=== PATIENT | female | born 1990 | race Hispanic/Latino ===

== ENCOUNTER 2018-03-26 15:50 | Observation (INO) | payer BC, OTHER ==
[2018-03-26] MEDS ORDERED: NA CHLORIDE 0.9% 2,000 ML ONE (16:00)
[2018-03-26] MEDS ORDERED: LORazepam 2 MG/ML VIAL ONE ×2 (16:04→17:56)
[2018-03-26 16:17] LABS: Absolute Lymphocytes (CBC) 3.6 K/uL (0.7-4.9); Absolute Monocytes 0.6 K/uL (0.1-1.3); Absolute Neutrophil 11.1 K/uL (1.8-8.0); Basophils % 0.7 % (0-1.3); Eosinophils % 0.1 % (0-4.4); Hematocrit 39.6 % (36.0-45.0); Lymphocytes % 23.4 % (15.3-44.8); MCH 30.5 pg (27.0-35.0); MPV 9.1 fL (7.6-11.3); Monocytes % 4.2 % (3.3-12.3)
[2018-03-26 16:25] LABS: Protime INR 1.14
[2018-03-26] MEDS ORDERED: LABETALOL HCL 100 MG/20 ML ONE (16:46)
[2018-03-26 16:52] LABS: ALT/SGPT 81 U/L (12-78); AST/SGOT 53 U/L (15-37); Albumin 3.8 g/dL (3.4-5.0); Alkaline Phosphatase 62 U/L (45-117); BUN Blood Urea Nitrogen 11 mg/dL (7-18); Bicarbonate 16 mmol/L (21-32); Bilirubin Direct 0.1 mg/dL (0-0.2); Bilirubin Total 0.5 mg/dL (0.2-1.0); Glucose Level 153 mg/dL (74-106); Magnesium 1.6 mg/dL (1.8-2.4); NT PRO-BNP 53 pg/mL (<125); Potassium 3.5 mmol/L (3.5-5.1); Protein, Total 8.1 g/dL (6.4-8.2); Sodium Level 142 mmol/L (136-145); Troponin (Emerg Dept Use Only) < 0.02 ng/mL (0.0-0.045)
--- NOTE | 2018-03-26 17:02 | RAD REPORT ---
EXAM DESCRIPTION: RAD - Chest Single View - 03/26/2018 4:21 pm CLINICAL HISTORY: Chest pain, tachycardia COMPARISON: None. TECHNIQUE: AP portable chest image was obtained 1605 hour . FINDINGS: Lung volumes are low. No peripheral mass, consolidation pulmonary edema. Resuscitation pad dles overlie the right chest and upper left abdomen. Heart and vasculature are normal. No measurable pleural effusion and no pneumothorax. No acute bony abnormality seen. No acute aortic findings suspec nimo. IMPRESSION: No acute cardiopulmonary process.
[2018-03-26] MEDS ORDERED: Magnesium Sulfate 2gm IVPB 2 G/50 ML BAG IV ONE (17:15)
[2018-03-26] MEDS ORDERED: NA CHLORIDE 0.9% 1,000 ML ONE ×2 (17:18→18:26)
[2018-03-26 17:23] LABS: Arterial Blood Carboxyhemoglob 0.7 % (0-1.5); Blood Gas Oxyhemoglobin 96.9 % (94-97); Blood O2 Saturation 98.9 % (92-98.5)
--- NOTE | 2018-03-26 18:32 | ER ---
Nurse's Notes [facility] Name: Aminata Garcia Age: 27 yrs Sex: Female : 1990 Arrival Date: 03/26/2018 Time: 15:51 Bed 2 Private MD: Diagnosis: Lactic Acidosis;Dehydration;Tachycardia, unspecified Presentation: 03/26 15:52 Presenting complaint: EMS states: was drinking with friends and today pt heart rate is hj on the 190's, max of 212; BP- 190/180; 160/80; 18 G RAC; pt was given adenosine 6 x 1 at 1520, HR- 78, few minutes later, HR on 190's, adenosine 12 givewn at 1525, HR went down to 92, then HR went up to 212, adenosine 12 given, 25 cardizem IV given;. Transition of care: patient was not received from another setting of care. Onset of symptoms was March 26, 2018. Risk Assessment: Do you want to hurt yourself or someone else? Patient reports no desire to harm self or others. Initial Sepsis Screen: Does the patient meet any 2 criteria? No. Patient's initial sepsis screen is negative. Does the patient have a suspected source of infection? No. Patient's initial sepsis screen is negative. Care prior to arrival: None. 15:52 Method Of Arrival: EMS: [facility] 15:52 Acuity: ROSE 2 hj Triage Assessment: 15:56 General: Appears in no apparent distress. uncomfortable, obese, Behavior is calm, hj cooperative, appropriate for age. Pain: Denies pain. 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 - Social history:: Smoking status: Patient uses tobacco products, Patient/guardian denies using alcohol, street drugs. - Ebola Screening: : Patient negative for fever greater than or equal to 101.5 degrees Fahrenheit, and additional compatible Ebola Virus Disease symptoms Patient denies exposure to infectious person Patient denies travel to an Ebola-affected area in the 21 days before illness onset. Screenin:56 Abuse screen: Denies threats or abuse. Denies injuries from another. Nutritional hj screening: No deficits noted. Tuberculosis screening: No symptoms or risk factors identified. Fall Risk None identified. Assessment: 15:56 General: Appears in no apparent distress. uncomfortable, Behavior is cooperative, hj appropriate for age, anxious. Pain: Denies pain. Neuro: Level of Consciousness is awake, alert, obeys commands, Oriented to person, place, time, situation, Appropriate for age. Cardiovascular: Capillary refill < 3 seconds Patient's skin is warm and dry. Respiratory: Airway is patent Respiratory effort is labored, Respiratory pattern is tachypnea. GI: No signs and/or symptoms were reported involving the gastrointestinal system. : EENT: No signs and/or symptoms were reported regarding the EENT system. Derm: No signs and/or symptoms reported regarding the dermatologic system. Musculoskeletal: No signs and/or symptoms reported regarding the musculoskeletal system. 16:30 Reassessment: Patient and/or family updated on plan of care and expected duration. Pain hj level reassessed. complaints of muscle aches and cannot open up hands; clinching of hands;. 17:30 Reassessment: Patient and/or family updated on plan of care and expected duration. Pain hj level reassessed. family in room;. 18:02 Reassessment: lactic of 4.3; MD notified;. hj 18:14 Reassessment: Patient and/or family updated on plan of care and expected duration. Pain hj level reassessed. Patient is alert, oriented x 3, equal unlabored respirations, skin warm/dry/pink. Patient states feeling better. Patient states symptoms have improved. 18:48 Reassessment: Patient and/or family updated on plan of care and expected duration. Pain hj level reassessed. Patient is alert, oriented x 3, equal unlabored respirations, skin warm/dry/pink. Patient states feeling better. Patient states symptoms have improved. 19:24 Reassessment: Patient appears in no apparent distress at this time. Patient and/or aa1 family updated on plan of care and expected duration. Pain level reassessed. Patient is alert, oriented x 3, equal unlabored respirations, skin warm/dry/pink. Awaiting bed assignment. 20:10 Reassessment: Patient appears in no apparent distress at this time. Patient is alert, aa1 oriented x 3, equal unlabored respirations, skin warm/dry/pink. Report given to Mela on 2nd floor. Vital Signs: 15:57 BP 144 / 85; Pulse 170; Resp 18; Temp 98.1(TE); Pulse Ox 100% on R/A; Weight 95.25 kg; hj Height 5 ft. 4 in. (162.56 cm); Pain 0/10; 16:32 BP 153 / 95; Pulse 162; Resp 18; Pulse Ox 100% on R/A; hj 17:51 BP 143 / 65; Pulse 130; Resp 18; Pulse Ox 100% on R/A; hj 18:13 BP 138 / 80; Pulse 128; Resp 18; Pulse Ox 99% on R/A; hj 18:48 BP 130 / 83; Pulse 130; Resp 18; Pulse Ox 100% on R/A; hj 19:24 BP 117 / 54; Pulse 135; Resp 16; Pulse Ox 99% on R/A; Pain 0/10; aa1 20:04 BP 118 / 60; Pulse 124; Resp 18; Pulse Ox 100% on R/A; Pain 0/10; aa1 15:57 Body Mass Index 36.05 (95.25 kg, 162.56 cm) hj ED Course: 15:51 Patient arrived in ED. hj 15:55 Triage completed. hj 15:56 Arm band placed on right wrist. hj 15:57 Patient has correct armband on for positive identification. Placed in gown. Bed in low hj position. Call light in reach. Side rails up X2. 15:58 [facility] jr8 15:58 Rashawn Harris MD is Attending Physician. jr8 16:00 Romulo Jara, ROD is Primary Nurse. hj 16:19 XRAY Chest (1 view) In Process Unspecified. EDMS 16:45 Maintain EMS IV. Dressing intact. Good blood return noted. Site clean \T\ dry. Gauge \T\ hj site: 18 G RAC;. 17:28 Osmolality, Serum Sent. hj 17:28 Lactate Sent. hj 17:28 CK Sent. hj 18:11 Jerman Garzon MD is Hospitalizing Provider. jr8 20:05 No provider procedures requiring assistance completed. Patient did not have IV access aa1 during this emergency room visit. Administered Medications: 16:00 Drug: Ativan 1 mg Route: IVP; Site: right antecubital; hj 16:37 Follow up: Response: No adverse reaction hj 16:01 Drug: NS 0.9% 1000 ml Route: IV; Rate: 1000 ml; Site: right antecubital; hb 16:01 Drug: NS 0.9% 1000 ml Route: IV; Rate: 1000 ml; Site: right antecubital; hj 16:19 Drug: Ativan 1 mg Route: IVP; Site: right antecubital; hj 16:37 Follow up: Response: No adverse reaction hj 16:36 Drug: Labetalol 10 mg Route: IVP; Infused Over: 2 mins; Site: right antecubital; hj 16:41 Follow up: Response: No adverse reaction hj 17:06 Drug: Magnesium Sulfate 2 grams Route: IVPB; Infused Over: 2 hrs; Site: right hj antecubital; 18:50 Follow up: IV Status: Completed infusion hj 17:12 Drug: NS 0.9% 1000 ml Route: IV; Rate: 1 bolus; Site: right antecubital; hj 18:50 Follow up: IV Status: Completed infusion hj 17:51 Drug: Ativan 2 mg Route: IVP; Site: right antecubital; hb 18:14 Follow up: Response: No adverse reaction hj 18:17 Drug: NS 0.9% 1000 ml Route: IV; Rate: 150 ml/hr; Site: right antecubital; hj 18:21 Follow up: IV Status: Infusion continued upon admission hj Outcome: 18:13 Decision to Hospitalize by Provider. jr8 20:28 Admitted to Tele accompanied by tech, family with patient, via wheelchair, room 205, aa1 with chart, Report called to Mela 20:28 Condition: stable 20:28 Instructed on the need for admit, Demonstrated understanding of instructions. 20:29 Patient left the ED. aa1 Signatures: Dispatcher [employer] EDMS Fallon Salazar RN RN aa1 Minor Hernandez PA PA jr8 Romulo Jara RN RN Demi Ruiz RN RN hb
--- NOTE | 2018-03-26 18:33 | EDPHYS ---
Physician Documentation [facility] Name: Aminata Garcia Age: 27 yrs Sex: Female : 1990 Arrival Date: 03/26/2018 Time: 15:51 Bed 2 Private MD: ED Physician Rashawn Harris HPI: 03/26 17:58 This 27 yrs old Female presents to ER via EMS with complaints of heart of 190. jr8 17:58 Patient stated that she had a lot to drink last night with family. Stated that this jr8 morning woke up hung over but ok. This afternoon started to have heart palpitations, anxiety, and could not unclench her hands or feet. Denies ever having this before. EMS state that her heart rate was anywhere from the 170s to 200s. Had given 3 rounds of adenosine and 25 mg of Cardizem with only temporary relief. Patient alert and oriented to person, place, time, event currently . Severity of symptoms: At their worst the symptoms were moderate in the emergency department the symptoms are unchanged. The patient has not experienced similar symptoms in the past. The patient has not recently seen a physician. 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 - Social history:: Smoking status: Patient uses tobacco products, Patient/guardian denies using alcohol, street drugs. - Ebola Screening: : Patient negative for fever greater than or equal to 101.5 degrees Fahrenheit, and additional compatible Ebola Virus Disease symptoms Patient denies exposure to infectious person Patient denies travel to an Ebola-affected area in the 21 days before illness onset. ROS: 17:58 Eyes: Negative for injury, pain, redness, and discharge, ENT: Negative for injury, jr8 pain, and discharge, Neck: Negative for injury, pain, and swelling, Respiratory: Negative for shortness of breath, cough, wheezing, and pleuritic chest pain, Abdomen/GI: Negative for abdominal pain, nausea, vomiting, diarrhea, and constipation, Back: Negative for injury and pain, MS/Extremity: Negative for injury and deformity, Skin: Negative for injury, rash, and discoloration, Neuro: Negative for headache, weakness, numbness, tingling, and seizure. 17:58 Cardiovascular: Positive for palpitations. Exam: 17:58 Head/Face: Normocephalic, atraumatic. Eyes: Pupils equal round and reactive to light, jr8 extra-ocular motions intact. Lids and lashes normal. Conjunctiva and sclera are non-icteric and not injected. Cornea within normal limits. Periorbital areas with no swelling, redness, or edema. ENT: Nares patent. No nasal discharge, no septal abnormalities noted. Tympanic membranes are normal and external auditory canals are clear. Oropharynx with no redness, swelling, or masses, exudates, or evidence of obstruction, uvula midline. Mucous membranes moist. Neck: Trachea midline, no thyromegaly or masses palpated, and no cervical lymphadenopathy. Supple, full range of motion without nuchal rigidity, or vertebral point tenderness. No Meningismus. Respiratory: Lungs have equal breath sounds bilaterally, clear to auscultation and percussion. No rales, rhonchi or wheezes noted. Tachypneac but without increased work of breathing, no retractions or nasal flaring. Abdomen/GI: Soft, non-tender, with normal bowel sounds. No distension or tympany. No guarding or rebound. No evidence of tenderness throughout. Back: No spinal tenderness. No costovertebral tenderness. Full range of motion. 17:58 Cardiovascular: Rate: tachycardic, Rhythm: regular, Pulses: Pulses are 2+ in right radial artery and left radial artery. Heart sounds: normal, normal S1and S2, no S3 or S4, no murmur, no rub, no gallop, Edema: is not appreciated, JVD: is not appreciated. Vital Signs: 15:57 BP 144 / 85; Pulse 170; Resp 18; Temp 98.1(TE); Pulse Ox 100% on R/A; Weight 95.25 kg; hj Height 5 ft. 4 in. (162.56 cm); Pain 0/10; 16:32 BP 153 / 95; Pulse 162; Resp 18; Pulse Ox 100% on R/A; hj 17:51 BP 143 / 65; Pulse 130; Resp 18; Pulse Ox 100% on R/A; hj 18:13 BP 138 / 80; Pulse 128; Resp 18; Pulse Ox 99% on R/A; hj 18:48 BP 130 / 83; Pulse 130; Resp 18; Pulse Ox 100% on R/A; hj 19:24 BP 117 / 54; Pulse 135; Resp 16; Pulse Ox 99% on R/A; Pain 0/10; aa1 20:04 BP 118 / 60; Pulse 124; Resp 18; Pulse Ox 100% on R/A; Pain 0/10; aa1 15:57 Body Mass Index 36.05 (95.25 kg, 162.56 cm) MDM: 15:58 Patient medically screened. [facility] 18:10 Data reviewed: vital signs, nurses notes, lab test result(s), EKG. Data interpreted: [facility] Pulse oximetry: on room air is 100 %. Interpretation: normal. Counseling: I had a detailed discussion with the patient and/or guardian regarding: the historical points, exam findings, and any diagnostic results supporting the discharge/admit diagnosis, lab results, the need for further work-up and treatment in the hospital. Response to treatment: the patient's symptoms have markedly improved after treatment. Physician consultation: Jerman Garzon MD was called at 18:11, was contacted at 18:11, regarding admission, to the telemetry unit. consult, patient's condition, and will see patient. 03/26 15:59 Order name: Acetaminophen; Complete Time: 17:04 03/26 15:59 Order name: Basic Metabolic Panel; Complete Time: 17:04 [facility] 03/26 15:59 Order name: CBC with Diff; Complete Time: 16:35 [facility] 03/26 15:59 Order name: ETOH Level; Complete Time: 17:04 [facility] 03/26 15:59 Order name: Hepatic Function; Complete Time: 17:04 [facility] 03/26 15:59 Order name: PT-INR; Complete Time: 16:35 [facility] 03/26 15:59 Order name: Ptt, Activated; Complete Time: 16:35 [facility] 03/26 15:59 Order name: Salicylate; Complete Time: 17:04 03/26 15:59 Order name: Urine Drug Screen [facility] 03/26 15:59 Order name: Magnesium; Complete Time: 17:04 [facility] 03/26 15:59 Order name: NT PRO-BNP; Complete Time: 17:04 [facility] 03/26 15:59 Order name: Troponin (emerg Dept Use Only); Complete Time: 17:04 [facility] 03/26 15:59 Order name: TSH; Complete Time: 17:04 [facility] 03/26 17:06 Order name: ABG [facility] 03/26 15:59 Order name: XRAY Chest (1 view); Complete Time: 17:04 [facility] 03/26 17:12 Order name: CK; Complete Time: 17:58 [facility] 03/26 17:12 Order name: Lactate [facility] 03/26 17:12 Order name: Osmolality, Serum [facility] 03/26 17:55 Order name: Urine Microscopic Only 03/26 17:57 Order name: Urine Dipstick--Ancillary (enter results) 03/26 17:57 Order name: Urine --Ancillary (enter results) 03/26 15:59 Order name: EKG; Complete Time: 16:00 [facility] 03/26 15:59 Order name: EKG - Nurse/Tech; Complete Time: 16:01 [facility] 03/26 15:59 Order name: IV Saline Lock; Complete Time: 16: [facility] 03/26 15:59 Order name: Labs collected and sent; Complete Time: 16:08 [facility] 03/26 15:59 Order name: Cardiac monitoring; Complete Time: 16: [facility] 03/26 15:59 Order name: O2 Per Protocol; Complete Time: 16: [facility] 03/26 15:59 Order name: O2 Sat Monitoring; Complete Time: 16:01 Administered Medications: 16:00 Drug: Ativan 1 mg Route: IVP; Site: right antecubital; hj 16:37 Follow up: Response: No adverse reaction hj 16:01 Drug: NS 0.9% 1000 ml Route: IV; Rate: 1000 ml; Site: right antecubital; hb 16:01 Drug: NS 0.9% 1000 ml Route: IV; Rate: 1000 ml; Site: right antecubital; hj 16:19 Drug: Ativan 1 mg Route: IVP; Site: right antecubital; hj 16:37 Follow up: Response: No adverse reaction hj 16:36 Drug: Labetalol 10 mg Route: IVP; Infused Over: 2 mins; Site: right antecubital; hj 16:41 Follow up: Response: No adverse reaction hj 17:06 Drug: Magnesium Sulfate 2 grams Route: IVPB; Infused Over: 2 hrs; Site: right hj antecubital; 18:50 Follow up: IV Status: Completed infusion hj 17:12 Drug: NS 0.9% 1000 ml Route: IV; Rate: 1 bolus; Site: right antecubital; hj 18:50 Follow up: IV Status: Completed infusion hj 17:51 Drug: Ativan 2 mg Route: IVP; Site: right antecubital; hb 18:14 Follow up: Response: No adverse reaction hj 18:17 Drug: NS 0.9% 1000 ml Route: IV; Rate: 150 ml/hr; Site: right antecubital; hj 18:21 Follow up: IV Status: Infusion continued upon admission hj Disposition: 18:51 Co-signature as Attending Physician, Rashawn Harris MD pt seen and examined VSS hr down denies coingestion, exam nl except for sinus tachycardia, will admit workup tachycardia lactic acidosis. Disposition: 03/26/18 18:13 Hospitalization ordered by Jerman Garzon for Observation. Preliminary diagnosis are Lactic Acidosis, Dehydration, Tachycardia, unspecified. - Bed requested for Telemetry/MedSurg (observation). - Status is Observation. aa1 - Condition is Stable. - Problem is new. - Symptoms have improved. UTI on Admission? No Signatures: Dispatcher [employer] Susan Gilman RN RN Fallon Salazar RN RN aa1 Minor Hernandez PA PA jr8 Romulo Jara RN RN Demi Ruiz RN RN Rashawn Harris MD MD Corrections: (The following items were deleted from the chart) 19:44 18:13 Hospitalization Ordered by Jerman Garzon MD for Observation. Preliminary diagnosis dw is Lactic Acidosis; Dehydration; Tachycardia, unspecified. Bed requested for Telemetry/MedSurg (observation). Status is Observation. Condition is Stable. Problem is new. Symptoms have improved. UTI on Admission? No. jr8 20:29 19:44 03/26/2018 18:13 Hospitalization Ordered by Jerman Garzon MD for Observation. aa1 Preliminary diagnosis is Lactic Acidosis; Dehydration; Tachycardia, unspecified. Bed requested for Telemetry/MedSurg (observation). Status is Observation. Condition is Stable. Problem is new. Symptoms have improved. UTI on Admission? No. dw
[2018-03-26 19:03] LABS: Barbiturates NEGATIVE (NEGATIVE); Benzodiazepines NEGATIVE (NEGATIVE); Cocaine NEGATIVE (NEGATIVE); METHAMPHETAM NEGATIVE (NEGATIVE); Methadone NEGATIVE (NEGATIVE); Opiates NEGATIVE (NEGATIVE); Phencyclidine NEGATIVE (NEGATIVE); THC Cannibis NEGATIVE (NEGATIVE)
[2018-03-26] MEDS ORDERED: ACETAMINOPHEN 500 MG TAB PO PRN (20:32)
[2018-03-26 21:03] VITALS: BMI 36.3
[2018-03-26] MEDS ORDERED: MAGNESIUM SULFATE 1 gm IVPB 1 GM/100 ML BAG IV ONE (21:33)
[2018-03-26] MEDS ORDERED: POTASSIUM CL SA 10 MEQ TAB PO ONE (22:22)
[2018-03-27 06:24] LABS: Absolute Lymphocytes (CBC) 3.8 K/uL (0.7-4.9); Absolute Monocytes 0.7 K/uL (0.1-1.3); Absolute Neutrophil 8.8 K/uL (1.8-8.0); Basophils % 0.5 % (0-1.3); Eosinophils % 0.5 % (0-4.4); Hematocrit 36.5 % (36.0-45.0); Lymphocytes % 28.3 % (15.3-44.8); MCH 31.4 pg (27.0-35.0); MCV 88.4 fL (80-100); MPV 9.2 fL (7.6-11.3); Monocytes % 5.5 % (3.3-12.3); RBC Red Blood Cell Count 4.13 M/uL (3.86-4.86)
[2018-03-27 06:44] LABS: ALT/SGPT 67 U/L (12-78); AST/SGOT 62 U/L (15-37); Albumin 3.3 g/dL (3.4-5.0); Alkaline Phosphatase 58 U/L (45-117); BUN Blood Urea Nitrogen 8 mg/dL (7-18); Bicarbonate 22 mmol/L (21-32); Bilirubin Total 0.6 mg/dL (0.2-1.0); Glucose Level 102 mg/dL (74-106); Magnesium 2.5 mg/dL (1.8-2.4); Potassium 3.7 mmol/L (3.5-5.1); Sodium Level 140 mmol/L (136-145)
--- NOTE | 2018-03-27 07:03 | EKG ---
Test Date: 2018-03-26 Test Time: 17:10:26 Cheese Cooker: MALA MEASUREMENT RESULTS: Intervals: Rate: 132 MN: 112 QRSD: 82 QT: 322 QTc: 477 [place]: P: 63 MN: 112 QRS: 68 T: 41 INTERPRETIVE STATEMENTS: Sinus tachycardia with occasional premature ventricular complexes Otherwise normal ECG No previous ECG available for comparison Electronically Signed On 03-27-18 07:02:25 EXTERNAL GRINDER by Magdi Llanes
--- NOTE | 2018-03-27 07:20 | EKG ---
Test Date: 2018-03-26 Test Time: 15:54:04 Proof Press Operator: ERICK MEASUREMENT RESULTS: Intervals: Rate: 171 AR: 100 QRSD: 76 QT: 292 QTc: 492 [place]: P: 56 AR: 100 QRS: 72 T: 37 INTERPRETIVE STATEMENTS: Sinus tachycardia with short AR Borderline ECG No previous ECG available for comparison Electronically Signed On 03-27-18 07:20:08 PLEATER by Mike Ramirez
--- NOTE | 2018-03-27 08:13 | P.HP ---
Certification for Inpatient Patient admitted to: Observation With expected LOS: <2 Midnights Patient will require the following post-hospital care: None Practitioner: I am a practitioner with admitting privileges, knowledge of patient current condition, hospital course, and medical plan of care. Services: Services provided to patient in accordance with Admission requirements found in Title 42 Section 412.3 of the Code of Federal Regulations Patient History Date of Service: 03/26/18 Reason for admission: SVT History of Present Illness: Patient is a 27-year-old female came to the hospital with SVT. Patient had been drinking quite a bit at home with her family. She normally does not drink a lot. When she came into the ER she was found have a heart rate in the 200s. She was given added is seen and Cardizem and she converted into a normal sinus rhythm. Patient is clinically is still weak and sore all over. She said she was clenching her hands for at least 3-5 min. That episode took quite a toll on her. She will be admitted to the hospital for observation Allergies No Known Allergies Allergy (Verified 03/26/18 21:40) Home Medications: NK [No Home Meds] 03/26/18 - Past Medical/Surgical History Has patient received pneumonia vaccine in the past: No Diabetic: No Past Medical History: Patient denies medical history Past Surgical History: Patient denies surgical history - Family History grandparents Medical History: Hypertension, Diabetes - Social History Smoking Status: Never smoker Alcohol use: Yes CD- Drugs: No Caffeine use: Yes Place of Residence: Home Review of Systems 10-point ROS is otherwise unremarkable Physical Examination - Vital Signs Temperature: 97.3 F Blood Pressure: 125/81 Pulse: 104 Respirations: 18 Pulse Ox (%): 98 - Physical Exam General: Alert, In no apparent distress, Oriented x3 HEENT: Atraumatic, PERRLA, Mucous membr. moist/pink, EOMI, Sclerae nonicteric Neck: Supple, 2+ carotid pulse no bruit, No LAD, Without JVD or thyroid abnormality Respiratory: Clear to auscultation bilaterally, Normal air movement Cardiovascular: Regular rate/rhythm, Normal S1 S2, No murmurs Gastrointestinal: Normal bowel sounds, Soft and benign, Non-distended, No tenderness Musculoskeletal: No clubbing, No swelling, No tenderness Integumentary: No rashes Neurological: Normal gait, Normal speech, Normal strength at 5/5 x4 extr, Normal tone, Sensation intact, Cranial nerves 3-12 intact, Normal affect Lymphatics: No axilla or inguinal lymphadenopathy - Studies Laboratory Data (last 24 hrs) 03/26/18 16:05: PT 13.5 H, INR 1.14, APTT 28.8 03/26/18 16:05: WBC 15.5 H, Hgb 13.7, Hct 39.6, Plt Count 389 03/26/18 16:05: Sodium 142, Potassium 3.5, BUN 11, Creatinine 1.00, Glucose 153 H, Magnesium 1.6 L, Total Bilirubin 0.5, AST 53 H, ALT 81 H, Alkaline Phosphatase 62 Assessment & Plan - Problems (Diagnosis) (1) SVT (supraventricular tachycardia) Current Visit: Yes Status: Acute (2) Alcohol use Current Visit: Yes Status: Acute - Plan Plan: 1. Low-dose beta-shady 2. Echocardiogram 3. Check thyroid studies 4. Refrain from caffeine 5. Cardiology consultation if needed 6. GI and DVT prophylaxis Discharge Plan: Home Plan to discharge in: 24 Hours - Advance Directives Does patient have a Living Will: No Does patient have a Durable POA for Healthcare: No - Code Status/Comfort Care Code Status Assessed: Yes Code Status: Full Code Critical Care: No Time Spent Managing PTS Care (In Minutes): 50
[2018-03-27] MEDS ORDERED: POTASSIUM CL SA 10 MEQ TAB PO ONE (09:00)
[2018-03-27] MEDS ORDERED: ATENOLOL 25 MG TAB PO SCH (09:00)
[2018-03-27 15:48] VITALS: BP 128/74; TEMP 97.9
--- NOTE | 2018-03-27 16:00 | ECHO ---
HEIGHT: 5 ft 4 in WEIGHT: 211 lb 9.6 oz DATE OF STUDY: 03/27/[address]: Christopher Hunter MD 2-DIMENSIONAL: YES M.MODE: YES DOPPLER: YES COLOR FLOW: YES TDS: PORTABLE: DEFINITY: BUBBLE STUDY: DIAGNOSIS: CHEST PAIN, SHORTNESS OF BREATH. CARDIAC HISTORY: CATHERIZATION: NO SURGERY: NO PROSTHETIC VALVE: NO PACEMAKER: NO MEASUREMENTS (cm) DIASTOLIC (NORMALS) SYSTOLIC (NORMALS) IVSd 0.9 (0.6-1.2) LA Diam 3.6 (1.9-4.0) LVEF 69% LVIDd 4.7 (3.5-5.7) LVIDs 2.9 (2.0-3.5) %FS 38% LVPWd 0.9 (0.6-1.2) Ao Diam 2.6 (2.0-3.7) 2 DIMENSIONAL ASSESSMENT: RIGHT ATRIUM: NORMAL LEFT ATRIUM: NORMAL RIGHT VENTRICLE: NORMAL LEFT VENTRICLE: NORMAL TRICUSPID VALVE: NORMAL MITRAL VALVE: NORMAL PULMONIC VALVE: NORMAL AORTIC VALVE: NORMAL PERICARDIAL EFFUSION: NONE AORTIC ROOT: NORMAL LEFT VENTRICULAR WALL MOTION: NORMAL DOPPLER/COLOR FLOW: NORMAL COMMENTS: NORMAL TWO DIMENSIONAL ECHOCARDIOGRAM WITH DOPPLER. TECHNOLOGIST: AKI CORTEZ
[2018-03-27 16:39] VITALS: O2SAT 97
--- NOTE | 2018-03-27 17:09 | P.SSS ---
Patient History Date of Service: 03/27/18 Primary Care Provider: Does not have one Reason for admission: SVT Allergies No Known Allergies Allergy (Verified 03/26/18 21:40) Home Medications: NK [No Home Meds] 03/26/18 - Past Medical/Surgical History Has patient received pneumonia vaccine in the past: No Diabetic: No - Family History grandparents -: Hypertension, Diabetes - Social History Smoking Status: Never smoker Alcohol use: Yes CD- Drugs: No Caffeine use: Yes Place of Residence: Home Review of Systems Unremarkable Physical Examination - Vital Signs Temperature: 97.9 F Blood Pressure: 128/74 Pulse: 87 Respirations: 18 Pulse Ox (%): 98 - Physical Exam General: Alert, In no apparent distress, Oriented x3 HEENT: Atraumatic, PERRLA, Mucous membr. moist/pink, EOMI, Sclerae nonicteric Neck: Supple, 2+ carotid pulse no bruit, No LAD, Without JVD or thyroid abnormality Respiratory: Clear to auscultation bilaterally, Normal air movement Cardiovascular: Regular rate/rhythm, Normal S1 S2 Gastrointestinal: Normal bowel sounds, No tenderness Musculoskeletal: No tenderness Integumentary: No rashes Neurological: Normal gait, Normal speech, Normal strength at 5/5 x4 extr, Normal tone, Normal affect Lymphatics: No axilla or inguinal lymphadenopathy Treatment Summary: Patient was admitted on the floor with tele. She was given IV fluids and low- dose atenolol. At the time of my exam the next morning, she was alert oriented x3, symptom-free. Her heart rate had come down into the low 80s. She was given a list of primary care physicians in the area, instructed to follow up in the next week. Patient verbalized understanding of all the instructions interactions provided to her. She was discharged home in stable and safe manner. - Disposition Disposition: ROUTINE DISCHARGE Condition: GOOD Patient Discharge Instructions: Please make an appointment with a primary care physician from the list provided to you. It is important that you follow up with a primary care physician. Diet: Regular Activity: Ad amrry Physician Review: Patient Assessed, Agree with Above Assessment and Plan Time Spent Managing Pts Care (In Minutes): 40
== END 2018-03-27 16:53 | disposition home or self-care (01) ==
LOC: ER 15:50 → ERHOLD 18:19 → 2ND 20:13
PROVIDERS: ADMIT Family Medicine; ATTEND Hospitalist
DX: I47.1 Supraventricular tachycardia (principal); Z72.89 Other problems related to lifestyle
CPT/HCPCS: 36415; 71045; 80048; 80053; 80076; 80307; 80320; 80329; 82550; 82805; 83605; 83735; 83880; 83930; 84443; 84484; 85025; 85610; 85730; 93005; 93306; 94760; 96365; 96366; 96375; 99285; G0378; J3475; J7030

== ENCOUNTER 2024-06-07 05:52 | Day surgery (SDC) | payer BC ==
[2024-06-06 13:44] LABS: Specific Gravity 1.024 (1.005-1.030)
[2024-06-07] MEDS: Ringers Lactate 1,000 ML IV ONE (06:16)
[2024-06-07] MEDS ORDERED: propofoL 200 MG/20 ML VIAL IV ONE (06:34)
[2024-06-07] MEDS ORDERED: ONDANSETRON 4 MG/2 ML VIAL ONE (06:34)
[2024-06-07] MEDS ORDERED: dexAMETHasone 10 MG/ML VIAL ONE (06:34)
[2024-06-07] MEDS ORDERED: LIDOCAINE 1% MPF 5 ML VIAL ONE (06:34)
[2024-06-07] MEDS ORDERED: FENTANYL CITR 100 MCG/2 ML ONE (06:34)
[2024-06-07] MEDS ORDERED: MIDAZOLAM HCL 2 MG/2 ML INJ ONE (06:35)
[2024-06-07] MEDS: LIDOCAINE HCL/EPINEPHRINE 20 ML MDV ONE (06:44)
[2024-06-07] MEDS ORDERED: Phenylephrine HCl 10 MG/ML 1 ML VIAL ONE (07:40)
[2024-06-07] MEDS ORDERED: KETOROLAC 30 MG/ML INJ ONE (08:09)
[2024-06-07] MEDS: HYDROMORPHONE HCL 1 MG/ML INJ ONE (08:31)
[2024-06-07] MEDS ORDERED: HOME MED 1 EA UNK (Naproxen Sodium [Aleve] 220 MG Tablet) PO PRN (08:50)
--- NOTE | 2024-06-07 08:55 | P.BOP ---
Preoperative diagnosis: Leiomyoma, dysmenorrhea, pelvic pain Postoperative diagnosis: same (type 2 leiomyoma) Primary procedure: Operative hysteroscopy and Myomectomy Estimated blood loss: 10 Specimen: fibroid Findings: post wall 3cm type 2 leiomyoma, completely shaved Anesthesia: General Complications: None Transferred to: Recovery Room Condition: Good
[2024-06-07] MEDS: HYDROCODONE/APAP 5/325 MG TAB PO ONE (09:12)
[2024-06-07] MEDS ORDERED: HYDROCODONE/APAP 5/325 MG TAB ONE (09:30)
--- NOTE | 2024-06-07 09:38 | OP ---
Date of Procedure: 06/07/2024 Surgeon: Nova An MD Preoperative Diagnoses: Pelvic pain; dysmenorrhea; and leiomyoma, type 2 or intracavitary. Postoperative Diagnoses: Pelvic pain; dysmenorrhea; and leiomyoma, type 2 or intracavitary. Procedures Performed: Operative hysteroscopy and myomectomy. Anesthesia: General with LMA. Specimens: Leiomyoma. Complications: No complications. Drains: No drains. Ebl: Minimal, 10 mL. Fluid Deficit: 175 mL. Condition: The patient's condition is stable. Findings: Posterior wall leiomyoma as expected with at least 75% or greater into the cavity. The in tracavitary portion of the myoma was completely resected using a MyoSure Lite device. The rest of th e cavity was distorted. Indications: The patient is a 33-year-old with dysmenorrhea and pelvic pain. On transvaginal ultras ound, she was found to have fibroids and thickened endometrium, so she had an office hysteroscopy guzman t was done to investigate the endometrial lining. The endometrial cavity was mostly unremarkable and the lining was unremarkable without any polyps other than a type 1/type 2 leiomyoma, which has a sig nificant protrusion into the uterine cavity. After she returned for her results appointment, she was counseled on the option of resection of the myoma. She also has bleeding as her baseline and she wa s counseled on the benefits and risks of myomectomy done hysteroscopically and observation versus obs ervation alone. The patient wanted to proceed. The patient was then consented for a myomectomy. Description Of Procedure: She was brought into the hospital today and re-consented in the preoperati ve area with her mother at her bedside and all questions were answered to their satisfaction. She wa s then taken back to the OR, placed in a supine fashion on the operating table. General anesthesia w as given. She was placed in a dorsal lithotomy position using Mariusz stirrups. The vulva, vagina, an d perineum were prepped with Betadine and draped in a sterile fashion. Speculum was placed to expose the cervix. Anterior lip was grasped with a single-tooth tenaculum. Then, the cervix was dilated t o 16-[place] and the MyoSure Lite operative scope was used to enter the cervical canal under direct vi yuliana and traversed the canal into the uterine cavity. The device was primed. Distention medium was normal saline. Distention pressure was 80 mmHg, which was then increased to 100 intermittently. On visualization of the myoma, it was apparent that a larger window with the MyoSure Reach would probabl y work in a more efficient fashion; however, as the MyoSure Lite device was the only one that was javier ilable even though it would take longer, the fibroid was quite amenable to be resected with this, so the MyoSure Lite device was then taken and blocked and dissection was done in a systematic fashion re moving the entire myoma, shaving it completely, flushed with the myometrium. The pressure was lowere d from 100 to 80 in order for the extrusion of the myoma further and once this was resected, pictures were taken. The scope was removed. Fluid deficit 175. The specimen was sent out. All the instrum ents were removed. Instrument, needle, and sponge counts were done and were correct at the end of e case. The patient tolerated the procedure well. She was recovered and taken to PACU in stable con dition and her mother and her debriefed about the procedure. She has a followup in the e for discussion of the path results and in 3 months, we will follow her again to see the outcome and impact on her pain. MARTINE/NAPOLEON Voice ID: [id number] Report ID: [id number]
[2024-06-07 10:06] VITALS: BP 123/82; TEMP 97; O2SAT 100
== END 2024-06-07 10:19 | disposition home or self-care (01) ==
LOC: OR 05:52
PROVIDERS: ATTEND Obstetrics & Gynecology
PROC: 0UB98ZZ Excision of Uterus, Via Natural or Artificial Opening Endoscopic (ICD-10-PCS; principal; 2024-06-07 07:00)
DX: D25.9 Leiomyoma of uterus, unspecified (principal); R10.2 Pelvic and perineal pain; N94.6 Dysmenorrhea, unspecified
CPT/HCPCS: 81025; 88305; 58561; J2704; J2003; J2371; J2250; J3010; J1100; J1171; J2405; J7120

== ENCOUNTER 2024-09-06 06:28 | Day surgery (SDC) | payer BC ==
[2024-09-05 11:20] LABS: Specific Gravity 1.024 (1.005-1.030)
[2024-09-05 11:23] LABS: Specific Gravity 1.024 (1.005-1.030); Sqamous Epithelial <5 /HPF (None Seen); Urine Bacteria <20 /HPF (<20); Urine Bilirubin NEGATIVE (Negative); Urine Blood 3+ (OVER) (Negative); Urine Clarity Extremely Turbid (Clear); Urine Color Colorless (Yellow); Urine Culture Reflex Order NOT NEEDED; Urine Glucose NEGATIVE (Negative); Urine Ketones NEGATIVE (Negative); Urine Microscopic Reflex YN ORDER UMIC; Urine Mucus Slight /HPF (None Seen); Urine Nitrite NEGATIVE (Negative); Urine Protein NEGATIVE (Negative); Urine RBC >50 /HPF (None Seen); Urine Urobilinogen Normal (Normal); Urine WBC <5 /HPF (<5)
[2024-09-05 11:25] LABS: Absolute Eosinophils 0.1 K/uL (0-0.5); Absolute Lymphocytes (CBC) 1.4 K/uL (0.7-4.9); Absolute Monocytes 0.3 K/uL (0.1-1.3); Absolute Neutrophil 5.8 K/uL (1.8-8.0); Basophils % 0.4 % (0-1.3); Eosinophils % 0.7 % (0-4.4); Hematocrit 30.2 % (36.0-45.0); Hemoglobin 10.5 g/dL (12.0-15.0); Lymphocytes % 18.8 % (15.3-44.8); MCH 31.7 pg (27.0-35.0); MCHC 34.9 g/dL (32.0-36.0); MPV 8.8 fL (7.6-11.3); Monocytes % 4.3 % (3.3-12.3); Neutrophils % 75.8 % (41.7-73.7); Platelets 322 thou/uL (152-406); RBC Red Blood Cell Count 3.32 M/uL (3.86-4.86); Red Cell Distribution Width 13.6 % (12.1-15.2)
[2024-09-06] MEDS ORDERED: Ringers Lactate 1,000 ML IV ONE (06:47)
[2024-09-06] MEDS ORDERED: CEFAZOLIN SODIUM 1 GM/VIAL ONE (06:47)
[2024-09-06] MEDS: SCOPOLAMINE HYDROBROMIDE PATCH TD ONE (06:50)
[2024-09-06] MEDS ORDERED: propofoL 200 MG/20 ML VIAL IV ONE (07:15)
[2024-09-06] MEDS ORDERED: ROCURONIUM 50 MG/5 ML VIAL IV ONE ×2 (07:15→08:22)
[2024-09-06] MEDS ORDERED: FENTANYL CITR 100 MCG/2 ML ONE ×2 (07:15→07:55)
[2024-09-06] MEDS ORDERED: ONDANSETRON 4 MG/2 ML VIAL ONE (07:15)
[2024-09-06] MEDS ORDERED: MIDAZOLAM HCL 2 MG/2 ML INJ ONE (07:15)
[2024-09-06] MEDS ORDERED: LIDOCAINE 2% MPF 5 ML VIAL ONE (07:15)
[2024-09-06] MEDS ORDERED: HYDROMORPHONE HCL 1 MG/ML INJ ONE (07:23)
[2024-09-06] MEDS: CEFAZOLIN SODIUM 2 GM/VIAL ONE (07:58)
[2024-09-06] MEDS ORDERED: dexAMETHasone 4 MG/ML VIAL ONE (08:07)
[2024-09-06] MEDS: BUPIVACAINE 0.25% PF 30 ML VIAL ONE (08:08)
[2024-09-06] MEDS: Ringers Lactate 1,000 ML IV ONE (08:51)
[2024-09-06] MEDS ORDERED: KETOROLAC 30 MG/ML INJ ONE (09:11)
[2024-09-06] MEDS ORDERED: Mastisol Adhesive Liq ONE ×2 (09:40→09:52)
[2024-09-06] MEDS ORDERED: GLYCOPYRROLATE 0.2 MG/ML SYR ONE (09:52)
[2024-09-06] MEDS ORDERED: NEOSTIGMINE 1 MG/ML -10 ML VIAL ONE (09:52)
[2024-09-06] MEDS: ONDANSETRON 4 MG/2 ML VIAL ONE (10:17)
[2024-09-06] MEDS: MIDAZOLAM HCL 2 MG/2 ML INJ ONE (10:41)
[2024-09-06] MEDS: LABETALOL 20 MG/4ML SYRINGE IV ONE (10:53)
--- NOTE | 2024-09-06 12:35 | OP ---
Date of Procedure: 09/06/2024 Surgeon: Nova An MD Tank Setter Helper: Carmen Harrington. Preoperative Diagnoses: Menorrhagia, dysmenorrhea, leiomyoma (abnormal uterine bleeding associated w ith ovulatory dysfunction) and possible left ovarian cyst. Postoperative Diagnoses: Menorrhagia, dysmenorrhea, leiomyoma (abnormal uterine bleeding associated with ovulatory dysfunction), possible left ovarian cyst, and left sigmoid adhesions to the left later al wall. Procedures Performed: Total laparoscopic hysterectomy, bilateral salpingectomy, significant lysis of adhesions of the sigmoid colon from the left lateral wall of the ureter and drainage of the left ova bruce cyst. Estimated Blood Loss: Minimal. Specimens: Uterus, bilateral tubes. Complications: No complications. Drains: No drains. Condition: The patient's condition is stable. Findings: Left ovarian cyst, simple, appeared to have clear fluid, appeared to be unremarkable. Rig ht ovary is completely unremarkable. Tubes are mostly unremarkable. No endometriosis noted. Sigmoi d colon adhesions were seen all the way from the left lower quadrant above the pelvic brim down to th e level of the uterosacral ligament on the left side. All these adhesions had to be taken in order f or me to visualize the ureter and complete hysterectomy. Lysis of adhesions took at least 20 minutes. The ovaries were both left intact. The appendix was unremarkable. The liver appeared to be unremark able as well. Upper abdomen was completely unremarkable. Indications: The patient is a 33-year-old who has significant menorrhagia. She had evaluation, brian tment with ultrasound and sampling. She had a levonorgestrel IUD placed for management of her bleedi ng. There were large clots and significant dysmenorrhea, and within less than 2 months of insertion of IUD, it was expelled when she had a period with large clots. She was placed on a control pi ll taper and this has not helped the patient stop the bleeding and she has been continuously bleeding . She went to ER at [facility] for evaluation most recently. An ultrasound was done and there was a leiom yoma that was visualized within the uterus and a left ovarian 4.3 cm simple cyst. In the office, we discussed about the different options for treatment and she had significant fatigue, discomfort, is t ired of her bleeding and on exam, she had a large amount of blood coming out through her cervical os. So, fertility desires in the future were discussed. She is multigravid and did not want to pursue any further fertility. Her main goal was to get help to stop the bleeding as she was getting tired o f this and she had a hemoglobin of 11.3. So, decision was made to offer her repeat IUD or cont rol pill to try for longer time or hysterectomy. The patient wanted to proceed with a definitive opt ion as the other 2 alternatives had failed. We also discussed Depo, but it was not acceptable for he r on a long-term basis. Description Of Procedure: After informed consent was re-verified in the preoperative area, she was t aken back to the OR and 2 g of Ancef were given. Time-out was done. The patient was placed in a sup ine fashion on the operating table and general anesthesia was given. She was placed in a dorsal lith otomy position in the [facility]. Abdomen, vulva, vagina, and perineum were prepped and draped i n a sterile fashion. Roland was placed to drain the bladder and a large VCare fixed in place to manip ulate the uterus and this area was draped. 1 cm infraumbilical incision was made with a scalpel after injecting 0.25% Marcaine on the skin. The same solution was used at all sides for the TAP block as well as subcutaneous injection. After the fascia was incised, tagged with 0 Vicryl sutures. Peritoneum was entered sharply. Padmini was introduced and after adequate insufflation, site of entry was checked. This was unremarkable. T wo 5 mm ports were placed, 1 in the left and the other in the right lower quadrant and then a 10/11 p ort in the suprapubic area under direct vision. The patient was placed in Trendelenburg position and procedure started. After cleaning out the pelvis, suction was clear that there were adhesions of the left lateral wall a nd the ovaries on both sides appeared to be mostly unremarkable except a cyst on the left. The appen elena appeared to be unremarkable and no other peritoneal implants of endometriosis were noted at all. Lysis of bowel adhesions: The bowel adhesions were taken down sharply with scissors as well as the L igaSure. Starting in the left lower quadrant above the pelvic brim and once this was taken down all the way to the base of the posterior wall, then the pelvic brim was dissected away from the ureter an d adhesions were taken down. Then, 3 layers of adhesions were present all the way down to the floor of the posterior wall into the uterosacral. There were no cul-de-sac adhesions or on the right side. Once all the adhesions were taken down, then hysterectomy was started. Hysterectomy, bilateral salpingectomy: Mesosalpinx was taken down from the distal fimbriated end tow ards the cornual end. Utero-ovarian ligament, round ligament were taken down and broad ligament open ed up with opening of the 2 leaves of the broad ligament and taken down the vessels. Then, uterine v essels were isolated after opening the anterior bladder flap connecting the anterior broad ligament d issection identifying the cup. Then, the vessels of the anterior and posterior aspect were isolated and the pedicle was taken with the help of LigaSure and cardinal ligaments taken down with bipolar ca utery with [place] and then later with LigaSure. On the opposite side, similar dissection was perfo rmed to start the dissection of the tube from the fimbriated end to the cornual end. Utero-ovarian l igament and round ligament were taken down, anterior broad ligament opened up and connected to the di ssection below. Then, once the round was taken down posterior broad ligament opened up to the uteros acral and broad ligament was taken down with the help of LigaSure. Once the vessels were skeletonize d and anterior bladder flap was connected properly, dissection done to expose the anterior vaginal wa ll. Vessels were taken down as a pedicle and then cardinal ligaments with the help of bipolar and mo nopolar. Circumferential colpotomy was performed with a monopolar hook blade. The specimen detached and pulled out through the vagina. did not have limitations to fit. Thorough irrigation and suction were performed. The posterior edge was cauterized with bipolar for hemostasis. Then, cuff was closed with 0 PDS suture to angle simple sutures and 3 figures- of-eight in the middle attaching all the layers of the vaginal cuff back together supporting the uter osacrals that were attached to the apex as well. After thorough irrigation and suction were performed. No evidence of electrical, mechanical, or ther mal injury was detected on both the ovaries. Attention was directed to the left ovary. Left ovarian cyst drainage. Incision was made on the left ovarian cyst and drainage was performed. There was clear fluid. The cyst appeared to be clear with simple wall even when visualized from insi de. This was decided to be left alone as mass was then 4 cm and mostly benign and this did not appea r to have any irregular surface of the top or the lining inside. All the trocars were removed under direct vision. After gas was desufflated, the patient was flattened out. Trocars were removed. Umb ilical port removed after all the ports and gas were removed. Fascia at the umbilicus was closed wit h tying with 0 Vicryl sutures tied together and suprapubic fascial site closed with the help of simpl e 0 Vicryl stitch. 4-0 Monocryl for all skin closure in an interrupted fashion. Vaginal bulb and th e Roland were removed. Instrument, needle, and sponge counts were correct. At the end of the case, E BL was less than 25. The patient will come back to the office for first postop in 7-10 days. Plan to discuss the sigmoid adhesions to the left lateral wall and refer to GI 3 months post recovery to rule out any diverticulitis or other pathology and second left ovarian followup to rule out cyst recurrence in 3 months and then in 1 year and we will do this follow up with ourselves and hemoglobin level to be checked in 3 months. She has instructions for iron to be taken 1-2 times a day for 3 mo nths. Her mother and were debriefed. MARTINE/NAPOLEON Voice ID: [id number] Report ID: [id number]
[2024-09-06 12:41] VITALS: BP 124/73; TEMP 98.2; O2SAT 99
== END 2024-09-06 12:20 | disposition home or self-care (01) ==
LOC: OR 06:28
PROVIDERS: ATTEND Obstetrics & Gynecology
PROC: 0UT74ZZ Resection of Bilateral Fallopian Tubes, Percutaneous Endoscopic Approach (ICD-10-PCS; 2024-09-06)
PROC: 0DNN4ZZ Release Sigmoid Colon, Percutaneous Endoscopic Approach (ICD-10-PCS; 2024-09-06)
PROC: 0DNW4ZZ Release Peritoneum, Percutaneous Endoscopic Approach (ICD-10-PCS; 2024-09-06)
PROC: 0UT94ZZ Resection of Uterus, Percutaneous Endoscopic Approach (ICD-10-PCS; principal; 2024-09-06 07:30)
DX: N92.1 Excessive and frequent menstruation with irregular cycle (principal); N94.6 Dysmenorrhea, unspecified; D25.0 Submucous leiomyoma of uterus; N83.8 Other noninflammatory disorders of ovary, fallopian tube and broad ligament; K66.0 Peritoneal adhesions (postprocedural) (postinfection)
CPT/HCPCS: 36415; 81001; 81025; 85025; 86850; 86900; 86901; 88307; J0690; J1100; J1171; J2003; J2250; J2405; J2704; J2710; J3010; J7120